=== PATIENT | female | born 1970 | race Caucasian/White ===

== ENCOUNTER 2017-12-01 16:30 | Emergency (ER) | payer BC ==
[2017-12-01 18:52] VITALS: BP 138/76
--- NOTE | 2017-12-01 19:04 | UC ---
Skin Complaint HPI - HPI Summary HPI Summary: Pt c/o left ear pain and swelling,. Pt has history of eczema in bilateral ears. Pt has been using previously prescribed medications with no improvement. - History of Current Complaint Chief Complaint: UCEar Time Seen by Provider: 12/01/17 18:42 Stated Complaint: LEFT EAR COMPLAINT Hx Obtained From: Patient Hx Last Menstrual Period: 11/25/17 ?: No Onset/Duration: Gradual Onset, Lasting Days, Worse Since - onset Skin Exposure Onset/Duration: Days Ago Timing: Constant Onset Severity: Mild Current Severity: Moderate Pain Intensity: 6 Location: Discrete, Ear (Left) Character: Swelling, Redness, Raised, Painful Aggravating Factor(s): Touch Alleviating Factor(s): Nothing Associated Signs & Symptoms: Positive: Drainage, Tenderness - Allergy/Home Medications Allergies/Adverse Reactions: Allergies Allergy/AdvReac Type Severity Reaction Status Date / Time MS Cephalexin [From Keflex] Allergy Intermediate HEART Verified 12/01/17 18:51 RACED, DIZZY Review of Systems Constitutional: Negative Skin: Other - swelling,tenderness, left outer ear, odiferous discharge Eyes: Negative ENT: Ear Ache - left ear pain Respiratory: Negative Cardiovascular: Negative Gastrointestinal: Negative Genitourinary: Negative Motor: Negative Neurovascular: Negative Musculoskeletal: Myalgia - upper back Neurological: Negative Psychological: Negative Is Patient Immunocompromised?: No All Other Systems Reviewed And Are Negative: Yes PMH/Surg Hx/FS Hx/Imm Hx Previously Healthy: Yes - Surgical History Surgical History: None - Family History Known Family History: Positive: Diabetes - Social History Occupation: Employed Full-time Lives: With Family Alcohol Use: None Substance Use Type: None Smoking Status (MU): Never Smoked Tobacco Have You Smoked in the Last Year: No Physical Exam Triage Information Reviewed: Yes Appearance: Well-Appearing Vital Signs: Initial Vital Signs Temp 99.3 F 12/01/17 18:46 Pulse 77 12/01/17 18:46 Resp 16 12/01/17 18:46 BP 138/76 12/01/17 18:46 Pulse Ox 100 12/01/17 18:46 Vital Signs Reviewed: Yes Eye Exam: Normal ENT: Positive: Other - erythematous, left outer ear and ear canal, mild swelling , tender,creamy white discharge noted in ear canal Course/Dx - Diagnoses Provider Diagnoses: eczema exacerbation left ear. otitis externa left ear, fungal Discharge - Discharge Plan Condition: Stable Disposition: HOME Prescriptions: Acetic Acid 15 ml OTIC Q8H #1 bottle Fluocinolone Acetonide 60 ml TOPICAL DAILY #1 bottle Patient Education Materials: Skin Yeast Infection (ED), Dermatitis (ED) Referrals: Alayna Lieberman MD [Primary Care Provider] - If Needed Paris Lopez [Medical Doctor] - If Needed
== END 2017-12-01 19:18 | disposition home or self-care (01) ==
LOC: UCCORT 16:30
DX: H60.542 Acute eczematoid otitis externa, left ear (principal); H60.92 Unspecified otitis externa, left ear; B48.8 Other specified mycoses
CPT/HCPCS: 99212; G0463

== ENCOUNTER 2019-03-09 13:00 | Emergency (ER) | payer BC ==
--- NOTE | 2019-03-09 13:15 | ED ---
Abdominal Pain/Female - HPI Summary HPI Summary: This patient is a 48 year old F presenting to ED with a chief complaint of epigastric pain since 1150. The patient was working during onset. She had a bowl of special K and some cashews and almonds today around 1130. The patient rates the pain 5/10 in severity. Symptoms aggravated by PO. Symptoms alleviated by lying down. Patient reports constipation and bloating. Patient denies diarrhea and urinary sx. She has had similar episodes previously about 3-4 times this month but this time felt a little tighter. She had some bugles before 1 episode and eggs before the second episode. She also has had pain in her esophagus after eating in the past and had to vomit to alleviate it. She denies any abdominal SHx. - History of Current Complaint Chief Complaint: EDAbdPain Stated Complaint: CHEST PAIN PER PT Time Seen by Provider: 03/09/19 13:09 Hx Obtained From: Patient Hx Last Menstrual Period: 11/25/17 Onset/Duration: Sudden Onset, Lasting Hours, Still Present Timing: Constant Severity Initially: Moderate Severity Currently: Moderate Pain Intensity: 5 Pain Scale Used: 0-10 Numeric Location: Epigastric Radiates: No Aggravating Factor(s): Food Alleviating Factor(s): Position - lying down Associated Signs and Symptoms: Positive: Constipation, Other: - bloating. Negative: Urinary Symptoms, Diarrhea Allergies/Adverse Reactions: Allergies Allergy/AdvReac Type Severity Reaction Status Date / Time cephalexin [From Keflex] Allergy GI Upset Verified 03/09/19 13:08 PMH/Surg Hx/FS Hx/Imm Hx Endocrine/Hematology History: Denies: Hx Diabetes Cardiovascular History: Denies: Hx Coronary Artery Disease, Hx Hypertension Infectious Disease History: No Infectious Disease History: Denies: Traveled Outside the [place] in Last 30 Days - Family History Known Family History: Positive: Diabetes, Other Family History: gall bladder issues - Social History Alcohol Use: None Substance Use Type: Reports: None Smoking Status (MU): Never Smoked Tobacco Have You Smoked in the Last Year: No Review of Systems Positive: Abdominal Pain - epigastric, Other - constipation, bloating. Negative : Diarrhea Positive: no symptoms reported All Other Systems Reviewed And Are Negative: Yes Physical Exam - Summary Physical Exam Summary: Appearance: Well-appearing, Well-nourished, lying in bed comfortably Skin: Warm, dry, no obvious rash Eyes: sclera anicteric, no conjunctival pallor ENT: mucous membranes moist, pharynx appears normal Neck: Supple, nontender Respiratory: Clear to auscultation, no signs of respiratory distress Cardiovascular: Normal S1, S2. No murmurs. Normal distal pulses in tibial and radial bilaterally. Abdomen: Soft, normal active bowel sounds present. Abrupt onset of colicky pain. Musculoskeletal: Normal, Strength/ROM Intact Neurological: A&Ox3, awake and alert, mentation is normal, speech is fluent and appropriate Psychiatric: affect is normal, does not appear anxious or depressed Triage Information Reviewed: Yes Vital Signs On Initial Exam: Initial Vitals Temp Pulse Resp BP Pulse Ox 98.8 F 90 19 199/107 97 03/09/19 13:04 03/09/19 13:04 03/09/19 13:04 03/09/19 13:04 03/09/19 13:04 Vital Signs Reviewed: Yes Diagnostics - Vital Signs Vital Signs Temp Pulse Resp BP Pulse Ox 03/09/19 13:04 98.8 F 90 19 199/107 97 - Laboratory Result Diagrams: 03/09/19 13:32 03/09/19 13:32 Lab Statement: Any lab studies that have been ordered have been reviewed, and results considered in the medical decision making process. - Ultrasound No standard instances Ultrasound Interpretation Completed By: Radiologist Summary of Ultrasound Findings: Gallbladder US reveals gallbladder polyp. No evidence of cholelithiasis or biliary duct dilatation is noted. Dr. Shelton has reviewed this radiology report. Re-Evaluation - Re-Evaluation First Eval Re-Evaluation Time: 13:59 Comment: Patient is in the bathroom. in the room says she is still in pain. Second Eval Re-Evaluation Time: 14:35 Change: Improved Comment: Discussed lab and US results with the patient. She also states that her pain is almost gone now. Discussed discharge plan with the patient and she understands and agrees with this plan. Abdominal Pain Fem Course/Dx - Course Course Of Treatment: This patient is a 48 year old F presenting to ED with a chief complaint of epigastric pain since 1150. Gallbladder US reveals gallbladder polyp. No evidence of cholelithiasis or biliary duct dilatation is noted. The patient feels better in the ER. This patient was discharged with dx of gastritis. Patient understands and agrees with this plan. - Diagnoses Differential Diagnosis: Positive: Other - gastritis Provider Diagnoses: Gastritis Discharge - Sign-Out/Discharge Documenting (check all that apply): Patient Departure - discharge Patient Received Moderate/Deep Sedation with Procedure: No - Discharge Plan Condition: Good Disposition: HOME Prescriptions: Omeprazole CAP (NF) [Prilosec CAP* 20 MG] 20 mg PO BEDTIME #14 cap. Patient Education Materials: Gastritis (ED) Referrals: Lavern Kirkpatrick NP [Primary Care Provider] - Austin Linares MD [Medical Doctor] - Additional Instructions: Your ultrasound test and the blood work did not confirm my suspicion of a gall bladder problem. For now I would recommend an antacid medication, but if you continue to have pain related to me will need further testing. Dr. Linares or one his colleagues should see you in any event as the swallowing difficulties you periodically have are suggestive of a narrowing in the esophagus. Potentially this could be related to your abdominal pain as well, so I think you are going to need an endoscopy in the near future. - Billing Disposition and Condition Condition: GOOD Disposition: Home - Attestation Statements Document Initiated by Vandana: Yes Documenting Scribe: Saurabh Wolf Provider For Whom Vandana is Documenting (Include Credential): Robert Shelton MD Scribe Attestation: I, Saurabh Wolf, scribed for Robert Shelton MD on 03/09/19 at 1709. Scribe Documentation Reviewed: Yes Provider Attestation: The documentation as recorded by the Saurabh pina accurately reflects the service I personally performed and the decisions made by me, Robert Shelton MD Status of Scribe Document: Viewed
[2019-03-09 13:51] LABS: Hematocrit 43 % (35-47); Hemoglobin 14.4 g/dL (12.0-16.0); Mean Corpuscular HGB Conc 34 g/dL (31-36); Mean Corpuscular Hemoglobin 29 pg (27-31); Mean Corpuscular Volume 87 fL (80-97); Red Blood Count 4.97 10^6 /uL (3.70-4.87); Red Cell Distribution Width 14 % (10.5-15)
[2019-03-09 13:58] LABS: ALT 16 U/L (7-52); AST 21 U/L (13-39); Albumin 4.5 g/dL (3.2-5.2); Albumin/Globulin Ratio 1.4 (1-3); Alkaline Phosphatase 49 U/L (34-104); Anion Gap 8 mmol/L (2-11); BUN/Creatinine Ratio 20.5 (8-20); Blood Urea Nitrogen 16 mg/dL (6-24); CO2 Carbon Dioxide 26 mmol/L (22-32); Calcium 9.5 mg/dL (8.6-10.3); Chloride 104 mmol/L (101-111); EGFR African American 96.2 (>60); EGFR Non-African American 79.5 (>60); Globulin 3.2 g/dL (2-4); Glucose 93 mg/dL (70-100); Potassium 4.2 mmol/L (3.5-5.0); Sodium 138 mmol/L (135-145); Total Protein 7.7 g/dL (6.4-8.9)
[2019-03-09 14:05] LABS: HCG Pregnancy < 0.60 mIU/mL
[2019-03-09 14:30] LABS: ABS Basophils 0.1 10^3/ul (0-0.2); ABS Eosinophils 0.4 10^3/ul (0-0.6); ABS Lymphocytes 1.8 10^3/ul (1.0-4.8); ABS Monocytes 0.6 10^3/ul (0-0.8); ABS Neutrophils 6.2 10^3/ul (1.5-7.7); Eosinophil % 4.6 %; Lymphocyte % 19.4 %; Nucleated Red Blood Cells % 0.1; Platelet Count Platelets clumped. 10^3/uL (150-450); White Blood Count 9.1 10^3/uL (3.5-10.8)
[2019-03-09 14:38] LABS: Urine Appearance Cloudy; Urine Bacteria Absent (Absent); Urine Bilirubin Negative (Negative); Urine Blood 3+ (Negative); Urine Color Amber; Urine Glucose Negative (Negative); Urine Ketones Negative (Negative); Urine Nitrite Negative (Negative); Urine Protein Negative (Negative); Urine Red Blood Cell 3+(>10/hpf) (Absent); Urine Squamous Epithelial Cell Present (Absent); Urine Urobilinogen Negative (Negative); Urine White Blood Cell Trace(0-5/hpf) (Absent)
[2019-03-09 15:01] VITALS: BP 148/78
== END 2019-03-09 15:00 | disposition home or self-care (01) ==
LOC: ED 13:00
DX: K29.60 Other gastritis without bleeding (principal); K82.4 Cholesterolosis of gallbladder
CPT/HCPCS: 36415; 76705; 80053; 81003; 81015; 83690; 84702; 85025; 87086; 99282

== ENCOUNTER 2019-09-26 08:46 | Emergency (ER) | payer BC ==
[2019-09-26 09:13] VITALS: BP 139/74
--- NOTE | 2019-09-26 10:05 | UC ---
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 Not sure if there is an infection or wax build up. Last had ear flushed a little over a year ago. Had a headache for 3 days,feels some pressure under eyes and post nasal drip. " -she has h/o eczema in ears and dealing w/ it x 10 yrs. went to a derm last year and has had good relief w/ 2 different steroids. 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 she wonders if she needs acetic acid bc she has had a yeast infection in left ear that resolved those sx. - History of Current Complaint Chief Complaint: UCGeneralIllness Stated Complaint: RIGHT EAR Time Seen by Provider: 09/26/19 09:36 Hx Last Menstrual Period: 11/25/17 Pain Intensity: 5 - Allergies/Home Medications Allergies/Adverse Reactions: Allergies Allergy/AdvReac Type Severity Reaction Status Date / Time cephalexin [From Keflex] Allergy GI Upset Verified 09/26/19 09:13 Home Medications: Home Medications Cholecalciferol TAB* [Vitamin D TAB*] 1,000 unit PO DAILY 09/26/19 [History Confirmed 09/26/19] L. Acidophilus/Pectin, [place] [Acidophilus Caplet] 1 tab PO DAILY 09/26/19 [ History Confirmed 09/26/19] Multivitamin [Multivitamins] 1 cap PO DAILY 09/26/19 [History Confirmed 09/26/19 ] PMH/Surg Hx/FS Hx/Imm Hx Previously Healthy: Yes - Surgical History Surgical History: None - Family History Known Family History: Positive: Diabetes, Other Family History: gall bladder issues - Social History Alcohol Use: None Substance Use Type: None Smoking Status (MU): Never Smoked Tobacco Have You Smoked in the Last Year: No Review of Systems All Other Systems Reviewed And Are Negative: Yes Constitutional: Positive: Negative Skin: Positive: Rash - right ear eczema Eyes: Positive: Negative ENT: Positive: Ear Ache. Negative: Sore Throat Respiratory: Positive: Negative. Negative: Shortness Of Breath, Cough Cardiovascular: Positive: Negative Gastrointestinal: Positive: Negative Genitourinary: Positive: Negative Motor: Positive: Negative Neurovascular: Positive: Negative Musculoskeletal: Positive: Negative Neurological: Positive: Negative Psychological: Positive: Negative Is Patient Immunocompromised?: No Physical Exam Triage Information Reviewed: Yes Appearance: Well-Appearing, No Pain Distress, Well-Nourished - very pleasant Vital Signs: Initial Vital Signs Temp 98.5 F 09/26/19 09:07 Pulse 78 09/26/19 09:07 Resp 18 09/26/19 09:07 BP 139/74 09/26/19 09:07 Pulse Ox 100 09/26/19 09:07 Vital Signs Reviewed: Yes Eye Exam: Normal ENT: Positive: Pharynx normal, Other - left TM nml, Rt canal cermuen imaocted. exteranal rt ear w/ mild erythema non blanching and some excoriation. tender. no dc Dental Exam: Normal Neck exam: Normal Neck: Positive: Supple, Nontender, No Lymphadenopathy Respiratory Exam: Normal Respiratory: Positive: Lungs clear, Normal breath sounds, No respiratory distress, No accessory muscle use Cardiovascular Exam: Normal Cardiovascular: Positive: RRR Psychological Exam: Normal Skin Exam: Normal Ear Complaint Course/Dx - Course Course Of Treatment: Rt ear flushed successfully -eczema rt ear. discussed cont current treatment objects - Differential Dx/Diagnosis Differential Diagnosis/HQI/PQRI: Cerumen Impaction, Otitis Media Provider Diagnosis: Impacted cerumen, right ear, Eczema of external ear Discharge ED - Sign-Out/Discharge Documenting (check all that apply): Patient Departure All imaging exams completed and their final reports reviewed: No Studies - Discharge Plan Condition: Stable Disposition: HOME Patient Education Materials: Eczema (ED), Cerumen Impaction (ED) Referrals: Lavern Kirkpatrick NP [Primary Care Provider] - If Needed Additional Instructions: The wax has been removed from your ear. You can use OTC debrox ear wax softening drops 1-2x week to help prevent wax build up. You should continue with current course of steroid creams that was prescribed by your type cutter for the ear eczema. - Billing Disposition and Condition Condition: STABLE Disposition: Home
== END 2019-09-26 10:25 | disposition home or self-care (01) ==
LOC: UCCORT 08:46
DX: H61.21 Impacted cerumen, right ear (principal); H60.541 Acute eczematoid otitis externa, right ear; R09.82 Postnasal drip; Z88.1 Allergy status to other antibiotic agents
CPT/HCPCS: 99212; G0463